=== PATIENT | female | born 1950 | race African-American/Black ===

== ENCOUNTER 2016-07-14 18:24 | Emergency (ER) | payer OTHER ==
--- NOTE | ~2016-07-14 | EKG ---
PATIENT: VICENTE GUAJARDO UNIT #: [id number] Ventricular Rate: 72 BPM Atrial Rate: 72 BPM P-R Interval: 156 ms QRS Duration: 76 ms Q-T Interval: 398 ms QTC Calculation(Bezet): 435 ms P [place]: 80 degrees Calculated R [place]: 41 degrees Calculated T [place]: 51 degrees Diagnosis Line: Normal sinus rhythm Diagnosis Line: Low voltage QRS Diagnosis Line: Borderline ECG Diagnosis Line: When compared with ECG of 30-DEC-2014 15:11, Diagnosis Line: Minimal criteria for Anterior infarct are no Diagnosis Line: longer Present Diagnosis Line: Confirmed by TIA PHILIP MD ([id number]) on Diagnosis Line: 07/15/2016 8:10:26 AM INTERPRETING MD: CEDRICK KNAPP
[~2016-07-14 18:24] MED LIST: AMOXICILLIN PO; ASPIRIN81 M1 PO; BACTRIM DS TABL1 TA2 PO; BROMFENAC; CEFTIN PO; COSOPT EYE DROPS5 ML OP; EYE DROPS15 M1; FLONASE16 GM; HYDROCODON-ACE1 EACH PO; LUMIGAN2.5 ML OP; NORVASC PO; NORVASC10 MG PO; PRED FORTE1 ML; TIMOPTIC2.5 ML OP; XALATAN OP; ZITHROMAX PO; ZITHROMAX500 MG PO; ZYMAR5 ML OP; [UNRECOGNIZED DRUG - OTHER]
[2016-07-14 19:32] LABS: URINE SOURCE CLEAN CATCH
[2016-07-14 19:36] LABS: URINE APPEARANCE CLEAR; URINE BILIRUBIN NEG (NEG); URINE BLOOD NEG (NEG); URINE COLOR YELLOW; URINE GLUCOSE NEG (NEG); URINE KETONE TRACE (NEG); URINE LEUKOCYTE ESTERASE 1+ (NEG); URINE NITRATE NEG (NEG); URINE PH 7.5 (5-8); URINE PROTEIN NEG (NEG); URINE SPECIFIC GRAVITY 1.016 (1.003-1.035)
[2016-07-14 19:39] LABS: CULTURE INDICATED? YES; URBCS1 AUWI 0-2 /[HPF] (0-2); URINE BACTERIA AUWI 1+ (NEGATIVE); URINE SQUAMOUS EPITHELIAL CELL OCC /[HPF]
== END 2016-07-14 21:34 | disposition home or self-care (01) ==
LOC: CED 18:24
PROVIDERS: Emergency Medicine
DX: H81.10 Benign paroxysmal vertigo, unspecified ear (principal); N39.0 Urinary tract infection, site not specified; I10 Essential (primary) hypertension; E11.39 Type 2 diabetes mellitus with other diabetic ophthalmic complication; H40.9 Unspecified glaucoma; F17.200 Nicotine dependence, unspecified, uncomplicated; Z98.890 Other specified postprocedural states
CPT/HCPCS: 81003; 82947; 87086; 93005; 99283